=== PATIENT | male | born 1990 | race Caucasian/White ===

== ENCOUNTER 2023-01-04 08:02 | Day surgery (SDC) | payer BC ==
[2023-01-04] VITALS (13 sets, daily range): BP systolic 114–167; BP diastolic 65–104
[~2023-01-04] VITALS: Ht 172.7 cm; Wt 155.0 kg
[~2023-01-04 08:02] MED LIST: LIDOcaine 1% 30ml preserv. free vial ONE; TEST200V33 IM; ceFAZolin inj. 3,000 MG in normal saline 100ml IV soln 100 ML IV ONE; famotidine 20mg tablet PO ONE; ringers solution, lacted 1,000 ML IV SCH
[2023-01-04] MEDS ORDERED: morphine 4 MG/ML inj SYRINge IV PRN (09:30)
[2023-01-04] MEDS ORDERED: morphine 2 MG/ML inj. syringe IV PRN (09:30)
[2023-01-04] MEDS ORDERED: ringers solution, lacted 1,000 ML IV SCH (09:30)
[2023-01-04] MEDS ORDERED: ondansetron/PF 4mg/2ml inj IV PRN (09:30)
[2023-01-04] MEDS ORDERED: proCHLORperazine 10 MG/2 ml inj IV PRN (09:30)
[2023-01-04 09:56] LABS: BASOPHILS # (AUTO) 0.1 X10'3 (0-0.2); BASOPHILS % (AUTO) 0.9 % (0-1); EOSINOPHILS # (AUTO) 0.1 X10'3 (0-0.9); EOSINOPHILS % (AUTO) 1.4 % (0-6); HEMATOCRIT 54.2 % (42.0-52.0); HEMOGLOBIN 17.8 g/dl (14.0-17.9); LYMPHOCYTES # (AUTO) 2.5 X10'3 (1.1-4.8); LYMPHOCYTES % (AUTO) 26.4 % (21-51); MEAN CORPUSCULAR HEMOGLOBIN 28.2 PG (27.0-31.0); MEAN CORPUSCULAR HGB CONC 32.8 g/dL (33.0-36.5); MEAN CORPUSCULAR VOLUME 86.1 FL (78-98); MEAN PLATELET VOLUME 8.7 FL (7.4-10.4); MONOCYTES # (AUTO) 1.1 X10'3 (0-0.9); MONOCYTES % (AUTO) 11.4 % (2-12); NEUTROPHILS # (AUTO) 5.8 X10'3 (1.8-7.7); NEUTROPHILS % (AUTO) 59.9 % (42-75); PLATELET COUNT 302 X10'3 (140-440); RED CELL DISTRIBUTION WIDTH 16.9 % (11.5-14.5); WHITE BLOOD COUNT 9.6 X10'3 (4.5-11.0)
[2023-01-04] MEDS ORDERED: LIDOcaine 1%/PF 5ML 10 MG/ML VIAL ONE (10:06)
[2023-01-04] MEDS ORDERED: MIDAZolam 1 MG/ML 5ML VIAL ONE (10:06)
[2023-01-04] MEDS ORDERED: fentaNYL/PF 50MCG/1 ML 2ML syringe ONE ×2 (10:06→11:44)
[2023-01-04] MEDS ORDERED: ROPIVAcaine 0.5% (5mg/ml) 30ml vial ONE (10:06)
[2023-01-04] MEDS ORDERED: LIDOcaine 2% (20mg/ml) 5ml vial ONE (10:07)
[2023-01-04 10:12] LABS: ALANINE AMINOTRANSFERASE 63 U/L (12-78); ALBUMIN 3.7 G/DL (3.4-5.0); ALBUMIN/GLOBULIN RATIO 1.1 (1.1-1.5); ALKALINE PHOSPHATASE 59 IU/L (46-116); ANION GAP 9 (8-16); BILIRUBIN,TOTAL 0.5 MG/DL (0.1-1.0); BLOOD UREA NITROGEN 12 MG/DL (7-18); BUN/CREATININE RATIO 12.5 (10.0-20.0); CALCIUM 8.3 MG/DL (8.5-10.1); CHLORIDE 105 MMOL/L (99-107); CREATININE 0.96 MG/DL (0.60-1.10); GLUCOSE 121 MG/DL (70-104); SODIUM 138 MMOL/L (135-145); TOTAL CARBON DIOXIDE 24.3 MMOL/L (24-32); TOTAL PROTEIN 7.2 G/DL (6.4-8.2); eGFR > 90 ML/MIN
[2023-01-04 10:17] LABS: ASPARTATE AMINO TRANSFERASE 37 U/L (10-37); POTASSIUM 4.3 MMOL/L (3.5-5.1)
[2023-01-04] MEDS ORDERED: BUPIVAcaine/PF 2.5 mg/ml (0.25%) 30ml vial ONE (10:25)
[2023-01-04] MEDS ORDERED: propofol inj 20 ML IV ONE (12:10)
[2023-01-04] MEDS ORDERED: acetaminophen 1,000mg/100ml IV 100 ML IV ONE (12:10)
--- NOTE | 2023-01-04 12:28 | NUR ---
Received from OR via [facility], accompanied by Anesthesiologist DR WHITLEY and report given by Anesthesiologist AND CREDIT ASSOCIATE. PT DROWSY, DENIES PAIN. PT RIGHT ARM FROM ELBOW TO HAND JUST BELOW END OF FINGERS W/DIAMOND WRAP COVERING INCISION/DRSG/SPINT CDI. FINGERS PWD, CONTROL CLERK SUBASSEMBLY 1-2 SECONDS. Addendum: 01/04/23 at 1302 by Rachael Nolan RN Amended: Links added.
[2023-01-04] MEDS ORDERED: acetaminophen 1,000mg/100ml IV 100 ML IV SCH (14:00)
--- NOTE | 2023-01-04 14:28 | NUR ---
PT UP AND ABLE TO AMBULATE SAFELY, SLING ON AND IN PLACE W/NERVE BLOCK STICKER PLACED ON DRSG, DISCUSSED IMPORTANCE OF MONITORING ARM WITH NERVE BLOCK. PT VERBALIZED UNDERSTANDING. D/C INSTRUCTIONS GIVEN AND GONE OVER W/PT WHO VERBALIZED UNDERSTANDING. PT D/CD TO HOME VIA W/C TO PRIVATE VEHICLE W/O INCIDENT. Addendum: 01/04/23 at 1435 by Rachael Nolan RN Amended: Links added.
== END 2023-01-04 14:28 | disposition home or self-care (01) ==
LOC: PAS 08:02
PROVIDERS: ATTEND Orthopaedic Surgery Hand Surgery
DX: S63.591A Other specified sprain of right wrist, initial encounter (principal); G89.18 Other acute postprocedural pain; F12.90 Cannabis use, unspecified, uncomplicated; E66.9 Obesity, unspecified; Z68.43 Body mass index [BMI] 50.0-59.9, adult; Z88.0 Allergy status to penicillin; Z88.2 Allergy status to sulfonamides; Z79.899 Other long term (current) drug therapy; Z98.890 Other specified postprocedural states; Z72.89 Other problems related to lifestyle; X58.XXXA Exposure to other specified factors, initial encounter; Y93.89 Activity, other specified; Y92.89 Other specified places as the place of occurrence of the external cause; Y99.8 Other external cause status
CPT/HCPCS: 25320; 36415; 64417; 80053; 82948; 85025; C1713; C1773; J0131; J0690; J2250; J2704; J2795; J3010; J3490; J7030; J7120; Z7506; Z7508; Z7512; A4215; A4565; A4618; A6449; A7000